=== PATIENT | male | born 1990 | race Caucasian/White ===

== ENCOUNTER → 2025-02-15 14:24 | Outpatient (BNVA) | payer SELFPAY | PROVIDERS: Visit Provider Emergency Medicine | DX: A64 Unspecified sexually transmitted disease (principal); Z20.2 Contact with and (suspected) exposure to infections with a predominantly sexual mode of transmission | CPT/HCPCS: 81000; 86592; 86695; 86696; 87086; 87491; 87591; 87661 ==